=== PATIENT | male | born 1965 | race Caucasian/White ===

== ENCOUNTER 2018-03-28 21:25 | Emergency (ER) | payer OTHER ==
[~2018-03-28] VITALS: Ht 180.3 cm; Wt 90.7 kg
[~2018-03-28 21:25] MED LIST: ATOR80 PO; Bactrim Ds Tab1 EACH PO; CARV3.125 PO; CARV6.25 PO; CEPH500 PO; Cleocin HCl150 MG PO; ENOX80I SQ; HYDPAM50 PO; LISI5 PO; OXYC5 PO; PRAV20 PO; SPIR25 PO; SULTRIDS PO; Silvadene20 GM TOP; TAMS.4ER PO; Ultram50 MG PO; WARF2.5 PO; WARF5 PO
[2018-03-28] MEDS ORDERED: Flagyl500 MG PO (23:46)
[2018-03-28] MEDS ORDERED: Cipro500 MG PO (23:46)
== END 2018-03-29 00:18 | disposition home or self-care (01) ==
LOC: ER 21:25
DX: K63.0 Abscess of intestine (principal); C19 Malignant neoplasm of rectosigmoid junction; I25.2 Old myocardial infarction; F17.210 Nicotine dependence, cigarettes, uncomplicated; Z86.718 Personal history of other venous thrombosis and embolism
CPT/HCPCS: 99282

== ENCOUNTER 2018-04-18 08:52 | Day surgery (SDC) | payer OTHER ==
[~2018-04-18] VITALS: Ht 180.3 cm; Wt 74.9 kg
[~2018-04-18 08:52] MED LIST changes: +Cipro500 MG PO; +Flagyl500 MG PO
== END 2018-04-18 12:18 | disposition home or self-care (01) ==
LOC: ORSCSDS 08:52
PROVIDERS: Surgery
PROC: 0JH60WZ Insertion of Totally Implantable Vascular Access Device into Chest Subcutaneous Tissue and Fascia, Open Approach (ICD-10-PCS; principal; 2018-04-18 10:15)
DX: C20 Malignant neoplasm of rectum (principal); C77.2 Secondary and unspecified malignant neoplasm of intra-abdominal lymph nodes; E78.5 Hyperlipidemia, unspecified; Z86.718 Personal history of other venous thrombosis and embolism; F17.210 Nicotine dependence, cigarettes, uncomplicated; Z79.82 Long term (current) use of aspirin; Z79.899 Other long term (current) drug therapy
CPT/HCPCS: 77001; C1788; J0690; J1642; J2250; J3010; J7120

== ENCOUNTER 2019-02-08 08:44 | Day surgery (SDC) | payer OTHER ==
[~2019-02-08] VITALS: Ht 180.3 cm; Wt 91.0 kg
== END 2019-02-08 11:17 | disposition home or self-care (01) ==
LOC: ORSCSDS 08:44
PROVIDERS: Surgery
PROC: 0DBM8ZX Excision of Descending Colon, Via Natural or Artificial Opening Endoscopic, Diagnostic (ICD-10-PCS; principal; 2019-02-08 10:15)
PROC: 0DBP8ZX Excision of Rectum, Via Natural or Artificial Opening Endoscopic, Diagnostic (ICD-10-PCS; principal; 2019-02-08 10:15)
DX: Z12.11 Encounter for screening for malignant neoplasm of colon (principal); Z85.038 Personal history of other malignant neoplasm of large intestine; D12.4 Benign neoplasm of descending colon; K62.1 Rectal polyp; K52.9 Noninfective gastroenteritis and colitis, unspecified; I82.409 Acute embolism and thrombosis of unspecified deep veins of unspecified lower extremity; I21.3 ST elevation (STEMI) myocardial infarction of unspecified site; E78.5 Hyperlipidemia, unspecified; I49.01 Ventricular fibrillation; F17.210 Nicotine dependence, cigarettes, uncomplicated
CPT/HCPCS: 88305; J2704; J7120

== ENCOUNTER 2019-03-23 19:10 | Emergency (ER) | payer OTHER ==
[~2019-03-23] VITALS: Ht 180.3 cm; Wt 88.5 kg
[2019-03-23 19:34] LABS: BASOPHILS ABSOLUTE AUTO 0.06 K/mm3 (0.00-0.23); BASOPHILS PERCENT AUTO 1 % (0-2); EOSINOPHILS ABSOLUTE AUTO 0.08 K/mm3 (0.00-0.68); EOSINOPHILS PERCENT AUTO 1 % (0-6); Hematocrit 42.7 % (37.0-53.0); Hemoglobin 14.1 g/dL (13.5-17.5); IMMATURE GRAN ABSOLUTE AUTO 0.04 K/mm3 (0.00-0.10); IMMATURE GRAN PERCENT AUTO 0 % (0-1); LYMPHOCYTES ABSOLUTE AUTO 1.27 K/mm3 (0.84-5.20); LYMPHOCYTES PERCENT AUTO 12 % (21-46); MONOCYTES ABSOLUTE AUTO 0.93 K/mm3 (0.16-1.47); MONOCYTES PERCENT AUTO 9 % (4-13); Mean Corpuscular HGB 31.8 pg (26.0-34.0); Mean Corpuscular Volume 96 fL (80-100); Mean Platelet Volume 9.6 fL (9.1-12.4); NEUTROPHILS ABSOLUTE AUTO 8.47 K/mm3 (1.96-9.15); NEUTROPHILS PERCENT AUTO 78 % (41-73); Platelet Count 165 K/mm3 (150-400); RDW Standard Deviation 42.7 fL (35.1-46.3); Red Blood Cell Count 4.44 M/mm3 (4.30-5.90); White Blood Cell Count 10.85 K/mm3 (4.00-11.30)
[2019-03-23 19:48] LABS: Alanine Aminotransfer (ALT/SGP 18 U/L (12-78); Albumin, Blood 3.4 g/dL (3.4-5.0); Albumin/Globulin Ratio 1.2 (0.8-1.8); Alk Phos 52 U/L (50-136); Anion Gap 5 mmol/L (6-16); Aspartate Aminotrans (AST/SGOT 13 U/L (12-37); Bilirubin, Total 0.2 mg/dL (0.1-1.0); Blood Urea Nitrogen 15 mg/dL (8-24); Bun/Creatinine Ratio 14.6 (12.0-20.0); CO2, Blood 27 mmol/L (21-32); Calcium, Blood 7.8 mg/dL (8.5-10.1); Chloride, Blood 112 mmol/L (98-108); Creatinine, Blood 1.03 mg/dL (0.60-1.20); Globulin, Blood 2.8 g/dL (2.2-4.0); Glomerular Filtration Rate >60 (60-); Glucose, Blood 116 mg/dL (70-99); Potassium, Blood 3.9 mmol/L (3.5-5.5); Sodium, Blood 144 mmol/L (136-145); Total Protein, Blood 6.2 g/dL (6.4-8.2); Troponin I <0.015 ng/mL (0.000-0.040)
== END 2019-03-23 20:51 | disposition home or self-care (01) ==
LOC: ER 19:10
PROVIDERS: Emergency Medicine
DX: R55 Syncope and collapse (principal); I25.2 Old myocardial infarction; E78.00 Pure hypercholesterolemia, unspecified; F17.210 Nicotine dependence, cigarettes, uncomplicated; Z86.718 Personal history of other venous thrombosis and embolism
CPT/HCPCS: 71046; 80053; 83880; 84484; 85025; 93005; 93010; 99284-25

== ENCOUNTER 2020-02-12 10:20 | Emergency (ER) | payer OTHER ==
[~2020-02-12] VITALS: Ht 172.7 cm; Wt 99.8 kg
[2020-02-12 11:58] LABS: BASOPHILS ABSOLUTE AUTO 0.04 K/mm3 (0.00-0.23); BASOPHILS PERCENT AUTO 0 % (0-2); EOSINOPHILS ABSOLUTE AUTO 0.04 K/mm3 (0.00-0.68); EOSINOPHILS PERCENT AUTO 0 % (0-6); Hematocrit 46.9 % (37.0-53.0); Hemoglobin 15.1 g/dL (13.5-17.5); IMMATURE GRAN ABSOLUTE AUTO 0.05 K/mm3 (0.00-0.10); IMMATURE GRAN PERCENT AUTO 0 % (0-1); LYMPHOCYTES ABSOLUTE AUTO 0.89 K/mm3 (0.84-5.20); LYMPHOCYTES PERCENT AUTO 7 % (21-46); MONOCYTES ABSOLUTE AUTO 0.74 K/mm3 (0.16-1.47); MONOCYTES PERCENT AUTO 6 % (4-13); Mean Corpuscular HGB 29.9 pg (26.0-34.0); Mean Corpuscular HGB Conc 32.2 g/dL (31.5-36.5); Mean Corpuscular Volume 93 fL (80-100); Mean Platelet Volume 9.5 fL (9.1-12.4); NEUTROPHILS ABSOLUTE AUTO 11.74 K/mm3 (1.96-9.15); NEUTROPHILS PERCENT AUTO 87 % (41-73); Platelet Count 216 K/mm3 (150-400); RDW Coefficient Variation 13.6 % (11.7-14.2); RDW Standard Deviation 46.3 fL (35.1-46.3); Red Blood Cell Count 5.05 M/mm3 (4.30-5.90)
[2020-02-12 12:09] LABS: Anion Gap 4 mmol/L (6-16); Blood Urea Nitrogen 16 mg/dL (8-24); Bun/Creatinine Ratio 17.3 (12.0-20.0); CO2, Blood 28 mmol/L (21-32); Calcium, Blood 8.6 mg/dL (8.5-10.1); Chloride, Blood 109 mmol/L (98-108); Creatinine, Blood 0.93 mg/dL (0.60-1.20); Glomerular Filtration Rate >60 (60-); Glucose, Blood 109 mg/dL (70-99); Potassium, Blood 4.3 mmol/L (3.5-5.5); Sodium, Blood 141 mmol/L (136-145)
== END 2020-02-12 14:03 | disposition home or self-care (01) ==
LOC: ER 10:20
PROVIDERS: Emergency Medicine
DX: T43.621A Poisoning by amphetamines, accidental (unintentional), initial encounter (principal); R11.2 Nausea with vomiting, unspecified; F17.210 Nicotine dependence, cigarettes, uncomplicated; D72.829 Elevated white blood cell count, unspecified
CPT/HCPCS: 74022; 80048; 85025; 93005; 93010; 96360; 99284-25; J7030